=== PATIENT | male | born 1965 ===

== ENCOUNTER 2021-04-08 18:39 | Emergency (ER) | payer BC ==
[2021-04-08] MEDS ORDERED: Sodium Chloride 0.9% 10 ML Syringe FLUSH PRN (19:47)
[2021-04-08] MEDS ORDERED: Sodium Chloride 0.9% 2.5 ML Syringe FLUSH PRN (19:47)
--- NOTE | 2021-04-08 19:51 | EDM.PDOC ---
ED HPI GENERAL MEDICAL PROBLEM - General Chief Complaint: Cardiovascular Problem Stated Complaint: NEED AND EKG Time Seen by Provider: 04/08/21 19:30 - History of Present Illness INITIAL COMMENTS - FREE TEXT/NARRATIVE: Patient is a 55-year-old male former heavy smoker but quit 4 years ago small- volume daily drinker with 1-2 beers nightly who is presenting with chest pain fatigue and shortness of breath. Patient states that he had Covid a month or so ago and since then a lot of things have not felt right. 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 He also describes exertional left-sided chest pain with some radiation to the left arm associated with some shortness of breath. The symptoms worsened with exertion and resolved with rest. He denies any symptoms at rest. No nausea or vomiting. There is an associated lightheadedness with the symptoms. He called his friend who is a doctor at home in [place] who recommended he start taking an aspirin every day. He is done who recommended he fly home to get additional testing. Patient is scheduled to fly home tomorrow. He has appointments with cardiology scheduled already. However, from that he should come to the ER to get an initial assessment. Patient denies chest pain at this time. chest Pain Score (Numeric/FACES): 2 - Related Data Allergies Allergy/AdvReac Type Severity Reaction Status Date / Time No Known Allergies Allergy Verified 04/08/21 19:37 Home Meds: Home Meds . [No Known Home Meds] 04/08/21 [History] Past Medical History - Infectious Disease History Infectious Disease History: Reports: Novel Coronavirus - Past Surgical History HEENT Surgical History: Reports: Naso-Sinus Surgery Musculoskeletal Surgical History: Reports: Other (See Below) Other Musculoskeletal Surgeries/Procedures:: tibiarepair Social & Family History - Family History Family Medical History: No Pertinent Family History - Caffeine Use Caffeine Use: Reports: None - Recreational Drug Use Recreational Drug Type: Reports: Marijuana/Hashish Recreational Drug Use Frequency: Monthly ED ROS GENERAL - Review of Systems Review Of Systems: See Below Free Text/Narrative/Comment: General: No fever. Skin: No rash. Eyes: No vision problems. ENT: No sore throat. Neck: No neck stiffness. Respiratory: Per HPI Cardiac: Per HPI Gastrointestinal: No nausea, vomiting or abdominal pain. Musculoskeletal: No myalgias/arthralgias. Neurologic: No headache. ED EXAM, GENERAL - Physical Exam Exam: See Below Free Text/Narrative:: General Appearance: No acute distress, appears comfortable Skin: No rash HEENT: Normocephalic/atraumatic, sclera anicteric, mucous membranes moist Neck: Normal range of motion Chest and Lungs: Bilateral breath sounds, clear to auscultation Cardiovascular: Mildly tachycardic rate regular rhythm intact distal perfusion no lower extremity edema Abdomen: Soft, non-tender Back: Normal Musculoskeletal: No edema or tenderness Neurologic: Awake, alert, no obvious deficits, moving all extremities Psychiatric: Appropriate, cooperative #1 Interpretation EKG Date: 04/08/21 Time: 19:50 EKG Interpretation Comments: Sinus rhythm with a rate of 98 there is a left bundle branch block. No priors available for comparison. There are no Haque modified scar posterior criteria met not felt to represent acute ischemia. Course - Vital Signs Last Recorded V/S: Last Vital Signs Temp 98.6 F 04/08/21 19:34 Pulse 133 H 04/08/21 19:34 Resp 16 04/08/21 19:34 BP 133/107 H 04/08/21 19:34 Pulse Ox 96 04/08/21 19:34 - Orders/Labs/Meds Orders: Active Orders 24 hr Category Date Time Status EKG 12 Lead [EKG Documentation Completion] [RC] STAT Care 04/08/21 19:48 Active Chest 1V Frontal [CR] Stat Exams 04/08/21 19:47 Taken Sodium Chloride 0.9% [Saline Flush] Med 04/08/21 19:47 Active 10 ml FLUSH ASDIRECTED PRN Sodium Chloride 0.9% [Saline Flush] Med 04/08/21 19:47 Active 2.5 ml FLUSH ASDIRECTED PRN Saline Lock Insert [OM.PC] Stat Oth 04/08/21 19:47 Ordered Medication Orders Sodium Chloride (Sodium Chloride 0.9% 10 Ml Syringe) 10 ml FLUSH ASDIRECTED PRN PRN Reason: Keep Vein Open Sodium Chloride (Sodium Chloride 0.9% 2.5 Ml Syringe) 2.5 ml FLUSH ASDIRECTED PRN PRN Reason: Keep Vein Open Labs: Laboratory Tests 04/08/21 04/08/21 04/08/21 Range/Units 19:41 19:41 19:58 WBC 10.54 (4.0-11.0) K/uL RBC 5.95 H (4.50-5.90) M/uL Hgb 18.3 H (13.0-17.0) g/dL Hct 52.2 H (38.0-50.0) % MCV 87.7 (80.0-98.0) fL MCH 30.8 (27.0-32.0) pg MCHC 35.1 (31.0-37.0) g/dL RDW Std Deviation 43.3 (28.0-62.0) fl RDW Coeff of Bautista 14 (11.0-15.0) % Plt Count 351 (150-400) K/uL MPV 9.70 (7.40-12.00) fL Neut % (Auto) 67.0 (48.0-80.0) % Lymph % (Auto) 20.5 (16.0-40.0) % [place] % (Auto) 11.3 (0.0-15.0) % Eos % (Auto) 0.9 (0.0-7.0) % Baso % (Auto) 0.3 (0.0-1.5) % Neut # (Auto) 7.1 H (1.4-5.7) K/uL Lymph # (Auto) 2.2 (0.6-2.4) K/uL [place] # (Auto) 1.2 H (0.0-0.8) K/uL Eos # (Auto) 0.1 (0.0-0.7) K/uL Baso # (Auto) 0.0 (0.0-0.1) K/uL Nucleated RBC % 0.0 /100WBC Nucleated RBCs # 0 K/uL D-Dimer, Quantitative < 0.19 (0.0-0.50) mg/L FEU Sodium 139 (136-148) mmol/L Potassium 3.8 (3.5-5.1) mmol/L Chloride 102 (98-107) mmol/L Carbon Dioxide 25.8 (21.0-32.0) mmol/L BUN 14 (7.0-18.0) mg/dL Creatinine 1.1 (0.8-1.3) mg/dL Est Cr Clr Drug Dosing 81.78 mL/min Estimated GFR (MDRD) > 60.0 ml/min Glucose 110 H (74-106) mg/dL Calcium 8.9 (8.5-10.1) mg/dL Total Bilirubin 2.1 H (0.2-1.0) mg/dL AST 21 (15-37) IU/L ALT 29 (14-63) IU/L Alkaline Phosphatase 61 (46-116) U/L Troponin I < 0.050 (0.000-0.056) ng/mL Total Protein 7.9 (6.4-8.2) g/dL Albumin 4.2 (3.4-5.0) g/dL Globulin 3.7 (2.6-4.0) g/dL Albumin/Globulin Ratio 1.1 (0.9-1.6) Meds: Medications Generic Name Dose Route Start Last Admin Trade Name Freq PRN Reason Stop Dose Admin Sodium Chloride 10 ml 04/08/21 19:47 Sodium Chloride 0.9% 10 Ml Syringe FLUSH ASDIRECTED PRN Keep Vein Open Sodium Chloride 2.5 ml 04/08/21 19:47 Sodium Chloride 0.9% 2.5 Ml Syringe FLUSH ASDIRECTED PRN Keep Vein Open Departure - Departure Time of Disposition: 20:34 Disposition: Home, Self-Care 01 Condition: Good Clinical Impression: LBBB (left bundle branch block), Sinus tachycardia Instructions: Left Bundle Branch Block Forms: ED Department Discharge Additional Instructions: Your EKG today shows something called a left bundle branch block. This is sometimes a sign of heart disease. It did not show any findings suggesting ongoing heart attack. And your heart enzyme level today was normal. However, it is important that you continue to take an aspirin every day and that you follow-up with your providers at home soon as possible. If you have a significant worsening of your symptoms or develop any episodes of severe chest pain or shortness of breath please go to the nearest emergency room immediately. Your lab work today also showed no signs of a blood clot and your chest x-ray showed no signs of pneumonia or chronic lung disease. The following information is given to patients seen in the emergency department who are being discharged to home. This information is to outline your options for follow-up care. We provide all patients seen in our emergency department with a follow-up referral. The need for follow-up, as well as the timing and circumstances, are variable depending upon the specifics of your emergency department visit. If you don't have a primary care physician on staff, we will provide you with a referral. We always advise you to contact your personal physician following an emergency department visit to inform them of the circumstance of the visit and for follow-up with them and/or the need for any referrals to a consulting specialist. The emergency department will also refer you to a specialist when appropriate. This referral assures that you have the opportunity for follow-up care with a specialist. All of these measure are taken in an effort to provide you with optimal care, which includes your follow-up. Under all circumstances we always encourage you to contact your private physician who remains a resource for coordinating your care. When calling for follow-up care, please make the office aware that this follow-up is from your recent emergency room visit. If for any reason you are refused follow-up, please contact the [facility] Emergency Department at and asked to speak to the emergency department charge nurse. Sepsis Event Note (ED) - Evaluation Sepsis Screening Result: No Definite Risk - Focused Exam Vital Signs: Vital Signs Temp Pulse Resp BP Pulse Ox 04/08/21 19:34 98.6 F 133 H 16 133/107 H 96 - My Orders Last 24 Hours: My Active Orders 04/08/21 19:47 Chest 1V Frontal [CR] Stat Sodium Chloride 0.9% [Saline Flush] 10 ml FLUSH ASDIRECTED PRN Sodium Chloride 0.9% [Saline Flush] 2.5 ml FLUSH ASDIRECTED PRN Saline Lock Insert [OM.PC] Stat 04/08/21 19:48 EKG 12 Lead [EKG Documentation Completion] [RC] STAT - Assessment/Plan Last 24 Hours: My Active Orders 04/08/21 19:47 Chest 1V Frontal [CR] Stat Sodium Chloride 0.9% [Saline Flush] 10 ml FLUSH ASDIRECTED PRN Sodium Chloride 0.9% [Saline Flush] 2.5 ml FLUSH ASDIRECTED PRN Saline Lock Insert [OM.PC] Stat 04/08/21 19:48 EKG 12 Lead [EKG Documentation Completion] [RC] STAT Assessment:: 55-year-old male presented with signs symptoms are consistent with angina. Patient has no symptoms at rest so would not be unstable angina. Pulmonary embolism needs to be considered as well given the tachycardia though there is no hypoxia I think that is low risk and D-dimer will be sent. EKG is pending CBC CMP troponin and chest x-ray ordered as well. Patient's evaluation here is negative for acute medical process he follow-up with his physician in [place]. N o findings I would suggest pneumonia his lungs are clear no clinical findings of heart failure. 2032: EKG demonstrates a left bundle branch block we do not have any priors for comparison. However no modified Rhiannon's criteria are satisfied its not felt to represent acute ischemia. Patient's labs show a normal D-dimer normal troponin. Patient is likely mildly hemoconcentrated as he is an elevated hemoglobin. However, this could also be explained by chronic lung disease. He does have a heavy smoking history. However, on exam he has no significant wheezes distant breath sounds that would suggest advanced COPD. Patient remains asymptomatic at this time. He has some minimal tachycardia. I do not see indication for admission at this point. Certainly the patient requires further cardiac evaluation strict return precautions were discussed and understood patient will follow up at home with his doctors.
[2021-04-08 20:09] LABS: BLOOD UREA NITROGEN,BUN 14 mg/dL (7.0-18.0); CARBON DIOXIDE,CO2 25.8 mmol/L (21.0-32.0); CHLORIDE,CL 102 mmol/L (98-107); GLUCOSE RANDOM 110 mg/dL (74-106); POTASSIUM,K 3.8 mmol/L (3.5-5.1); SODIUM,NA 139 mmol/L (136-148)
--- NOTE | 2021-04-08 21:25 | CR ---
HISTORY: Chest pain with elevated heart rate. Not feeling well for the past week. COMPARISON: None available FINDINGS: A portable erect AP view of the chest was obtained at 2020 hours. The lungs are clear. No focal or diffuse infiltrates are present. The heart is normal in size. The mediastinum is normal in appearance. The osseous structures are normal in appearance for the patient`s age. IMPRESSION: Normal portable chest single view. Dictated by Ronny Preciado MD @ 04/08/2021 9:23:[address] Ronny Preciado @ Apr 08 2021 9:23PM
== END 2021-04-08 20:50 | disposition home or self-care (01) ==
LOC: MW.ED 18:39
DX: I44.7 Left bundle-branch block, unspecified (principal); R00.0 Tachycardia, unspecified
CPT/HCPCS: 36415; 71045; 71045-26; 80053; 84484; 85025; 85379; 93005; 93010; 99283; 99285-25